=== PATIENT | male | born 1995 ===

== ENCOUNTER 2017-02-04 19:16 | Emergency (ER) | payer BC ==
[~2017-02-04] VITALS: Ht 185.4 cm; Wt 78.5 kg
[2017-02-04 19:26] VITALS: TEMP 36.9; Ht 185.4 cm; Wt 78.5 kg
--- NOTE | 2017-02-04 20:44 | EMERGENCY ROOM VISIT NOTE ---
History First contact with patient: 20:06 Chief Complaint: CONSTIPATION Stated Complaint: SEVERE CONSTIPATION PAST 7 DAYS Nursing Triage Summary: Pt has had constipation for greater than one week. Tried miralax, enema today with no relief. History of Present Illness The patient is a 21 year old male who presents to the Emergency Room with complaints of constipation. The patient states that his last normal bowel movement was approximately 8 days ago. He has had very small movement since then. The patient states he feels a fullness in his abdomen. He rates his discomfort a 3/10. The patient tried a mini enema without relief. He states that his father is a physician and suggested he try digital disimpaction. The patient did attempt but had no success. The patient denies any fevers. He denies any pain in his chest or trouble breathing. He denies any urinary symptoms. He denies any nausea, vomiting or diarrhea. Review of Systems A 10 system review of systems was completed with positives and pertinent negatives listed in the HPI. Past Medical/Surgical History none Social History Smoking Status: Never Smoker Marital Status: single Occupation Status: [employer] Current/Historical Medications No Active Prescriptions or Reported Meds Physical Exam Vital Signs Date Time Temp Pulse Resp B/P (MAP) Pulse Ox O2 Delivery O2 Flow Rate FiO2 02/04/17 22:13 69 18 118/61 98 02/04/17 21:26 81 18 121/74 98 Room Air 02/04/17 19:26 36.9 69 18 129/78 98 Room Air Physical Exam VITALS: Vitals are noted on the nurse's note and reviewed by myself. Vital signs stable. The patient is afebrile. GENERAL: This is a 21-year-old male, in no acute distress, nondiaphoretic, well- developed well-nourished. SKIN: The skin was without rashes, erythema, edema, or bruising. There is no tenting of the skin. Capillary reflex less than 2 seconds. HEAD: Normocephalic atraumatic. EARS: External ears normal in appearance. EYES: Pupils equal round and reactive to light and accommodation. Conjunctivae without injection, sclerae without icterus. Extraocular movements intact. NOSE: Patent, turbinates without inflammation or discharge. Strict MOUTH: Mucous membranes moist. Tonsils are not enlarged. Pharynx without erythema or exudate. Uvula midline. Airway patent. Tongue does not deviate. NECK: Supple without nuchal rigidity. No lymphadenopathy. No thyromegaly. Cervical spine is nontender. No JVD. HEART: Regular rate and rhythm without murmurs gallops or rubs. LUNGS: Clear to auscultation bilaterally without wheezes, rales or rhonchi. No retractions or accessory muscle use. ABDOMEN: Positive bowel sounds x 4. Soft, moderate lower quadrant tenderness without masses or organomegaly. MUSCULOSKELETAL: No muscle atrophy, erythema, or edema noted. Full range of motion in all extremities. Normal gait. Strength 5/5 throughout. NEURO: Patient was alert and oriented to person place and time. No focal neurological deficits. Medical Decision & Procedures ER Provider Diagnostic Interpretation: ABDOMEN 2VIEW W/PA CHEST RTN CLINICAL HISTORY: 21 years-old Male presenting with abdominal pain, constipation. TECHNIQUE: PA view of the chest and supine and upright views of the abdomen were obtained. COMPARISON: None. FINDINGS: Cardiomediastinal silhouette normal. Lungs and pleural spaces clear. Mild stool burden throughout the colon most prominently in the right colon. No evidence of bowel obstruction. No evidence of free intraperitoneal gas, pneumatosis, or portal venous gas. Osseous structures normal. IMPRESSION: 1. No acute cardiopulmonary disease. 2. Mild stool burden could suggest constipation, most prominently in the right colon. Medications Administered Medications (Trade) Dose Ordered Sig/Ronal Route Start Time Stop Time Status Last Admin Dose Admin Miscellaneous (Soap Suds Enema) 1 ea ONE STAT IL 02/04/17 21:17 02/04/17 21:18 DC 02/04/17 21:38 1 EA ED Course The patient was seen and examined. Previous visits were reviewed. The patient does not have a fever Plain films of the abdomen revealed increased stool burden, particularly on the right side The patient was given a soapsuds enema and had a large bowel movement. The patient was feeling significantly improved. I did reassess his abdomen. He does not have any right lower quadrant abdominal tenderness after the enema. The patient is encouraged to try MiraLAX. He should return with worsening symptoms, fevers, right lower quadrant pain. Otherwise, he should follow with his family doctor next week. Medical Decision DIFFERENTIAL DIAGNOSIS: Hepatitis, cholecystitis, cholangitis, biliary colic, pancreatitis, pneumonia, subdiaphragmatic abscess, appendicitis, inguinal hernia , nephrolithiasis, inflammatory bowel disease, mesenteric adenitis, peptic ulcer disease, GERD, gastritis, pancreatitis, myocardial infarction, pericarditis, ruptured aortic aneurysm, appendicitis, gastroenteritis, bowel obstruction, splenic infarct, diverticulitis, mesenteric ischemia, metabolic, peritonitis, among others. Medication Reconcilliation Current Medication List: was personally reviewed by me Blood Pressure Screening Patient's blood pressure: Normal blood pressure Blood pressure disposition: Did not require urgent referral Impression Primary Impression: Constipation Departure Information Dispostion Home / Self-Care Condition GOOD Prescriptions No Active Prescriptions or Reported Meds Patient Instructions ED Constipation, My [facility] Additional Instructions You may try miralax until stools are softer and regular Return with fevers, worsening pain
--- NOTE | 2017-02-04 21:15 | DIAGNOSTIC IMAGING REPORT ---
ABDOMEN 2VIEW W/PA CHEST RTN CLINICAL HISTORY: 21 years-old Male presenting with abdominal pain, constipation. TECHNIQUE: PA view of the chest and supine and upright views of the abdomen were obtained. COMPARISON: None. FINDINGS: Cardiomediastinal silhouette normal. Lungs and pleural spaces clear. Mild stool burden throughout the colon most prominently in the right colon. No evidence of bowel obstruction. No evidence of free intraperitoneal gas, pneumatosis, or portal venous gas. Osseous structures normal. IMPRESSION: 1. No acute cardiopulmonary disease. 2. Mild stool burden could suggest constipation, most prominently in the right colon. Electronically signed by: Noah Simons M.D. 02/04/2017 9:14 PM Dictated Date/Time: 02/04/2017 9:12 PM
[2017-02-04] MEDS ORDERED: SOAP SUDS ENEMA PR STA (21:17)
[2017-02-04 22:13] VITALS: BP 118/61; PULSE 69; O2SAT 98
== END 2017-02-04 22:13 | disposition home or self-care (01) ==
LOC: C.EDB 19:18 → C.EDC 22:13
DX: K59.00 Constipation, unspecified (principal)